=== PATIENT | female | born 1965 ===

== ENCOUNTER 2022-02-06 11:53 | Emergency (ER) | payer BC, OTHER ==
[~2022-02-06] VITALS: Ht 182.9 cm; Wt 81.8 kg
[2022-02-06 11:56] VITALS: BP 155/93
== END 2022-02-06 14:37 | disposition home or self-care (01) ==
LOC: ER 11:54
DX: S56.911A Strain of unspecified muscles, fascia and tendons at forearm level, right arm, initial encounter (principal); M77.8 Other enthesopathies, not elsewhere classified; M79.631 Pain in right forearm; X58.XXXA Exposure to other specified factors, initial encounter; Y93.89 Activity, other specified; Y92.89 Other specified places as the place of occurrence of the external cause; Y99.8 Other external cause status
CPT/HCPCS: 99282